=== PATIENT | male | born 1980 | race Caucasian/White ===

== ENCOUNTER 2020-06-22 04:52 | Emergency (ER) | payer SELFPAY ==
[2020-06-22] MEDS ORDERED: Acetaminophen/oxyCODONE 325-5 MG Tab PO STA (05:27)
--- NOTE | 2020-06-22 05:34 | EDM.PDOC ---
ED HPI GENERAL MEDICAL PROBLEM - General Chief Complaint: ENT Problem Stated Complaint: SORE THROAT Time Seen by Provider: 06/22/20 05:15 Source of Information: Reports: Patient, RN History Limitations: Reports: No Limitations - History of Present Illness INITIAL COMMENTS - FREE TEXT/NARRATIVE: 39 yo male here with L sided sore throat getting worse over the past couple of days. No fever or rash. Took ibuprofen tonight with slight relief only. Onset: Gradual Onset Date: 06/19/20 Duration: Day(s):, Getting Worse Location: Reports: Neck (L side of throat) Quality: Reports: Sharp Severity: Moderate Improves with: Reports: Medication Worsens with: Reports: Other (time) Context: Reports: Other (See HPI) Associated Symptoms: Reports: No Other Symptoms Treatments [employer]: Reports: NSAIDS sore throat Pain Score (Numeric/FACES): 5 - Related Data Allergies Allergy/AdvReac Type Severity Reaction Status Date / Time No Known Allergies Allergy Verified 06/22/20 05:33 Home Meds: Home Meds NK [No Known Home Meds] 06/22/20 [History] Past Medical History HEENT History: Reports: Impaired Vision, Other (See Below) Other HEENT History: glasses - Infectious Disease History Infectious Disease History: Reports: Chicken Pox Social & Family History - Tobacco Use Tobacco Use Status *Q: Never Tobacco User - Caffeine Use Caffeine Use: Reports: Coffee - Recreational Drug Use Recreational Drug Use: No ED ROS ENT - Review of Systems Review Of Systems: See Below Constitutional: Reports: No Symptoms HEENT: Reports: Throat Pain (L side only), Throat Swelling (left side only). Denies: Rhinitis Respiratory: Reports: No Symptoms GI/Abdominal: Reports: No Symptoms Skin: Reports: No Symptoms Neurological: Reports: No Symptoms ED EXAM, ENT - Physical Exam Exam: See Below Exam Limited By: No Limitations General Appearance: Alert, WD/WN, No Apparent Distress Eye Exam: Bilateral Eye: Normal Inspection Ears: Normal External Exam, Normal Canal, Hearing Grossly Normal, Normal TMs Nose: Normal Inspection, No Blood. No: Clear Rhinorrhea Mouth/Throat: Normal Lips, Normal Teeth, Muffled Voice (slight), Peritonsillar Mass (left side), Tonsillar Swelling (L side only). No: Normal Oropharynx, Lip Swelling, Tonsillar Exudates Head: Atraumatic, Normocephalic Neck: Normal Inspection Respiratory/Chest: No Respiratory Distress, Lungs Clear, Normal Breath Sounds, No Accessory Muscle Use Cardiovascular: Regular Rate, Rhythm Neurological: Alert, Oriented, CN II-XII Intact, Normal Cognition, No Motor/Sensory Deficits Psychiatric: Normal Affect, Normal Mood Skin: Warm, Dry, Intact, Normal Color, No Rash ED ENT PROCEDURES - Additional/Other Procedure(s) Other (Free Text) Procedure(s): anesth throat by gargling with viscous xylocaine. Attempted drainage and was able to get about 1/2 cc out. Course - Vital Signs Last Recorded V/S: Last Vital Signs Temp 36.4 C 06/22/20 05:15 Pulse 88 06/22/20 05:15 Resp 14 06/22/20 05:15 BP 141/80 H 06/22/20 05:15 Pulse Ox 98 06/22/20 05:15 - Orders/Labs/Meds Orders: Active Orders 24 hr Category Date Time Status Soft Tissue Neck w Cont [CT] Stat Exams 06/22/20 05:42 Taken CULTURE STREP A CONFIRMATION [] Stat Lab 06/22/20 05:13 Results STREP SCRN A RAPID W CULT CONF [] Stat Lab 06/22/20 05:13 Results Sodium Chloride 0.9% [Saline Flush] Med 06/22/20 05:42 Active 10 ml FLUSH ASDIRECTED PRN Saline Lock Insert [OM.PC] Routine Oth 06/22/20 05:42 Ordered Medication Orders Sodium Chloride (Saline Flush) 10 ml FLUSH ASDIRECTED PRN PRN Reason: Keep Vein Open Last Admin: 06/22/20 05:48 Dose: 10 ml Documented by: VIOLETTE Meds: Medications Generic Name Dose Route Start Last Admin Trade Name Freq PRN Reason Stop Dose Admin Sodium Chloride 10 ml 06/22/20 05:42 06/22/20 05:48 Saline Flush FLUSH 10 ml ASDIRECTED PRN Administration Keep Vein Open Discontinued Medications Generic Name Dose Route Start Last Admin Trade Name Freq PRN Reason Stop Dose Admin Sodium Chloride 70 mls @ 3 mls/sec 06/22/20 05:54 06/22/20 06:01 Normal Saline IV 06/22/20 05:55 3 mls/sec ASDIRECTED STA Administration Ampicillin Sodium/Sulbactam 100 mls @ 200 mls/hr 06/22/20 06:31 06/22/20 06:41 Sodium 3 gm/ Sodium Chloride IV 06/22/20 07:00 200 mls/hr ONETIME ONE Administration Iopamidol 100 ml 06/22/20 05:53 06/22/20 06:01 Isovue-300 (61%) IV 06/22/20 05:54 100 ml . DIRECTED STA Administration Lidocaine HCl 20 ml 06/22/20 06:35 Xylocaine 2% Viscous PO 06/22/20 06:36 ONETIME ONE Lidocaine HCl 15 ml 06/22/20 06:43 06/22/20 06:46 Xylocaine 2% Viscous PO 06/22/20 06:44 15 ml ONETIME ONE Administration Oxycodone/Acetaminophen 1 tab 06/22/20 05:27 06/22/20 05:33 Percocet 325-5 Mg PO 06/22/20 05:28 1 tab ONETIME STA Administration - Radiology Interpretation Free Text/Narrative:: CT soft tissue neck with IV contrast-L peritonsillar abscess CT Results Date: 06/22/20 CT Results Time: 07:02 Departure - Departure Time of Disposition: 07:30 Disposition: Home, Self-Care 01 Condition: Fair Clinical Impression: Peritonsillar abscess - Discharge Information *PRESCRIPTION DRUG MONITORING PROGRAM REVIEWED*: No *COPY OF PRESCRIPTION DRUG MONITORING REPORT IN PATIENT GEOVANNI: No Instructions: Peritonsillar Abscess Referrals: PCP,None [Primary Care Provider] - Forms: ED Department Discharge Additional Instructions: Take ibuprofen 600 mg every 6 hrs with food. Add percocet as needed for added relief. Drink ample fluids. Take Augmentin every 12 hrs until gone. Recheck in the clinic tomorrow, if worse you may need ENT referral. Sepsis Event Note (ED) - Evaluation Sepsis Screening Result: No Definite Risk - Focused Exam Vital Signs: Vital Signs Temp Pulse Resp BP Pulse Ox 06/22/20 05:15 36.4 C 88 14 141/80 H 98 06/22/20 05:14 36.4 C 88 14 141/80 H 98 - My Orders Last 24 Hours: My Active Orders 06/22/20 05:13 CULTURE STREP A CONFIRMATION [RM] Stat STREP SCRN A RAPID W CULT CONF [RM] Stat 06/22/20 05:42 Soft Tissue Neck w Cont [CT] Stat Sodium Chloride 0.9% [Saline Flush] 10 ml FLUSH ASDIRECTED PRN Saline Lock Insert [OM.PC] Routine - Assessment/Plan Last 24 Hours: My Active Orders 06/22/20 05:13 CULTURE STREP A CONFIRMATION [] Stat STREP SCRN A RAPID W CULT CONF [RM] Stat 06/22/20 05:42 Soft Tissue Neck w Cont [CT] Stat Sodium Chloride 0.9% [Saline Flush] 10 ml FLUSH ASDIRECTED PRN Saline Lock Insert [OM.PC] Routine
[2020-06-22] MEDS ORDERED: Sodium Chloride 0.9% 10 ML Syringe FLUSH PRN (05:42)
[2020-06-22] MEDS ORDERED: Iopamidol 612 MG/ML 100 ML Bottle IV STA (05:53)
[2020-06-22] MEDS ORDERED: Ampicillin/Sulbactam Na 3 GM in Sodium Chloride 0.9% 100 ML IV ONE (06:31)
[2020-06-22] MEDS ORDERED: Lidocaine 2% Viscous Solution 100 ML Bottle PO ONE (06:35)
[2020-06-22] MEDS ORDERED: Lidocaine 2% Viscous Solution 15 ML Cup PO ONE (06:43)
--- NOTE | 2020-06-22 07:04 | CRLCT ---
INDICATION: Left-sided throat swelling COMPARISON: none TECHNIQUE: A CT volumetric acquisition was performed of the neck during intravenous infusion of 100 cc Isovue-300 FINDINGS: The CT images demonstrate normal aeration of the mastoid air cells and middle ear cavities. There are small mucous retention cysts within the base the right maxillary sinus. The paranasal sinuses are otherwise clear. The parotid and submandibular glands are of normal size and have uniform enhancement. There is mild swelling within the left nasopharynx with edema partially compressing the eustachian tube. Inferior to this within the oropharynx there is enlargement of the palatine tonsils left greater than right. There is a ill-defined 18 x 16 mm area of decreased density within the central portion of the left palatine tonsil suggesting abscess formation. There is edema within the uvula. The epiglottis, aryepiglottic folds and piriform sinuses appear normal. The right vallecula appears normal. There is mucoid debris within the left vallecula. There is a normal appearance of the larynx and subglottic trachea. The thyroid gland is of normal size and has uniform density. There is no evidence of lymphadenopathy within the anterior and posterior cervical triangles or within the supraclavicular region. IMPRESSION: Edema within the oropharynx with evidence of a left tonsillar abscess measuring 18 x 16 mm. Dictated by Jerel Mccarthy MD @ 06/22/2020 7:01:59 AM Please note that all CT scans at this facility use dose modulation, iterative reconstruction, and/or weight-based dosing when appropriate to reduce radiation dose to as low as reasonably achievable. Dictated by: Jerel Mccarthy MD @ 06/22/2020 07:02:07 (Electronically Signed)
== END 2020-06-22 07:31 | disposition home or self-care (01) ==
LOC: JP.ED 04:52
DX: J36 Peritonsillar abscess (principal)
CPT/HCPCS: 70491; 87081; 87880; 96365; 99283; A9270; J0295; J7050; Q9967

== ENCOUNTER 2021-12-09 18:43 | Emergency (ER) | payer MEDICAID ==
[2021-12-09] MEDS ORDERED: Bacitracin Oint 1 GM U/D Packet TOP ONE (20:04)
== END 2021-12-09 20:27 | disposition home or self-care (01) ==
LOC: JP.ED 18:43
DX: S61.011A Laceration without foreign body of right thumb without damage to nail, initial encounter (principal); L08.9 Local infection of the skin and subcutaneous tissue, unspecified; F17.210 Nicotine dependence, cigarettes, uncomplicated
CPT/HCPCS: 99281; 99282